=== PATIENT | female | born 1980 | race Caucasian/White ===

== ENCOUNTER → 2021-08-24 | Outpatient (CLI) | payer OTHER ==
[~2021-08-24] MED LIST: ADVAIR 100-501 EACH INH; FLONASE; NORCO 5-325 TA1 EACH PO; PROVENTIL HFA6.7 G1 INH
== END ==
LOC: M.CT 08:00
PROVIDERS: ATTEND General Practice
DX: Z13.6 Encounter for screening for cardiovascular disorders (principal)